=== PATIENT | male | born 1955 ===

== ENCOUNTER 2017-12-05 13:27 | Inpatient (IN) | payer OTHER ==
[~2017-12-05] VITALS: Ht 177.8 cm; Wt 69.8 kg
[2017-12-05] MEDS ORDERED: SODIUM CHLORIDE 0.9% 1,000ML IVBOLUS ONE ×2 (14:00→15:30)
[2017-12-05] MEDS ORDERED: PLEASE ENTER ALLERGIES MC SCH (14:00)
[2017-12-05] MEDS ORDERED: PLEASE ENTER HEIGHT AND WEIGHT MC SCH (14:00)
[2017-12-05] MEDS ORDERED: DEXTROSE 50%, 50ML VIAL IVPush ONE ×2 (14:00→16:00)
[2017-12-05] MEDS ORDERED: ONDANSETRON 2MG/ML, 2ML IVPush ONE (14:00)
[2017-12-05] MEDS ORDERED: CEFTRIAXONE 1,000 MG in SODIUM CHLORIDE 0.9% 50 ML IVPB ONE (14:00)
[2017-12-05] MEDS ORDERED: ONDANSETRON 2MG/ML, 2ML ONE (14:03)
[2017-12-05] MEDS ORDERED: DEXTROSE 50%, 50ML SYRINGE ONE ×3 (14:03→17:19)
[2017-12-05 14:26] LABS: ALANINE AMINOTRANSFERASE 41 U/L (12-78); ALBUMIN 3.5 g/dL (3.4-5.0); ANION GAP 12 mmol/L (5-15); CALCIUM 8.5 mg/dL (8.5-10.1); CHLORIDE 110 mmol/L (98-107); SALICYLATE LEVEL 1.9 mg/dL (2.8-20.0)
[2017-12-05] MEDS ORDERED: THIAMINE 100 MG in DEXTROSE 5% 50 ML IVPB ONE (14:30)
[2017-12-05 14:31] LABS: ALKALINE PHOSPHATASE 165 U/L (45-117); BILIRUBIN,TOTAL 0.3 mg/dL (0.2-1.0); CREATININE 1.01 mg/dL (0.7-1.3); TOTAL PROTEIN 7.4 g/dL (6.4-8.2); TROPONIN I < 0.015 ng/mL (0.000-0.045)
[2017-12-05] MEDS ORDERED: CEFTRIAXONE PMX 1GM/50ML 50 ML ONE (14:31)
[2017-12-05 14:32] LABS: ACETAMINOPHEN < 2 mcg/mL (10-30)
[2017-12-05 14:37] LABS: MD YES; MEAN CORPUSCULAR HEMOGLOBIN 25.9 pg (27.5-34.5); MEAN CORPUSCULAR HGB CONC 31.3 g/dL (33.2-36.2); MEAN CORPUSCULAR VOLUME 82.7 fL (81-97); MEAN PLATELET VOLUME 7.4 fL (7.4-10.4); PLATELET COUNT 434 x10^3/uL (130-400); RED BLOOD COUNT 4.43 x10^6/uL (4.38-5.82)
[2017-12-05 14:38] LABS: INTERNATIONAL NORMALIZED RATIO 0.95 (0.93-1.1); PROTHROMBIN TIME 9.9 Seconds (9.6-11.5)
[2017-12-05 14:50] LABS: BANDS%(MANUAL) 1 % (0-7); LYMPH#(MANUAL) 2.02 x10^3/uL (1-3.4); LYMPHS% (MANUAL) 10 % (22-44); MONOS#(MANUAL) 1.01 x10^3/uL (0.3-2.7); MONOS% (MANUAL) 5 % (2-9); SEG#(MANUAL) 16.97 x10^3/uL (1.8-6.8); SEGS% (MANUAL) 84 % (42-75)
[2017-12-05 14:52] LABS: ANISOCYTOSIS 2+; MICROCYTOSIS 1+; OVALOCYTES 1+; TOXIC GRAN 2+
[2017-12-05 14:53] LABS: <PLATELET ESTIMATE> INCREASED; <PLT MORPHOLOGY> NORMAL PLT MORPH
[2017-12-05] MEDS ORDERED: MIDAZOLAM 1 MG/ML, 2ML ONE ×2 (15:03→15:17)
[2017-12-05] MEDS ORDERED: VANCOMYCIN PMX 1GM/200ML 200 ML IVPB ONE (15:30)
[2017-12-05] MEDS ORDERED: MIDAZOLAM 1 MG/ML, 2ML IVPush ONE ×2 (15:30→16:00)
[2017-12-05] MEDS ORDERED: ACYCLOVIR 500 MG in SODIUM CHLORIDE 0.9% 100 ML IVPB ONE (15:30)
[2017-12-05] MEDS ORDERED: OMNIPAQUE 350 MG/ML, 100ML BOTTLE ONE (15:41)
[2017-12-05] MEDS ORDERED: DEXTROSE 10%, 1,000ML IV ONE (16:00)
[2017-12-05] MEDS ORDERED: LABETALOL 5MG/ML, 20ML IVPush PRN (16:30)
[2017-12-05] MEDS ORDERED: ACETAMINOPHEN 325 MG TABLET PO PRN (16:30)
[2017-12-05] MEDS ORDERED: POLYETHYLENE GLYCOL 17 GM PACKET PO PRN (16:30)
[2017-12-05] MEDS ORDERED: DEXTROSE 4 GM TAB.CHEW PO PRN (17:00)
[2017-12-05] MEDS ORDERED: GLUCAGON 1 MG IM PRN (17:00)
[2017-12-05] MEDS ORDERED: DEXTROSE 50%, 50ML SYRINGE IVPush PRN (17:00)
[2017-12-05] MEDS ORDERED: BUPR300T4 PO (17:45)
[2017-12-05] MEDS ORDERED: MEMA5TAB PO (17:45)
[2017-12-05] MEDS ORDERED: CHOL20002 PO (17:45)
[2017-12-05] MEDS ORDERED: INSU100I7 SQ-INSULIN (17:45)
[2017-12-05] MEDS ORDERED: ATOR10TA9 PO (17:45)
[2017-12-05] MEDS ORDERED: LISI-167 PO (17:45)
[2017-12-05] MEDS ORDERED: ASPI-496 PO (17:45)
[2017-12-05] MEDS ORDERED: D5%-0.9% NACL 1,000 ML IV SCH (18:30)
[2017-12-05] MEDS: ENOXAPARIN 40 MG/0.4 ML SQ SCH (18:37)
[2017-12-05] MEDS: AMPICILLIN/SULBACTAM 3 GM in SODIUM CHLORIDE 0.9% 100 ML IV SCH (18:38)
[2017-12-05] MEDS: SODIUM CHLORIDE FLUSH 10ML SYR IVF SCH (21:00)
[2017-12-06] MEDS: AMPICILLIN/SULBACTAM 3 GM in SODIUM CHLORIDE 0.9% 100 ML IV SCH ×4 (00:47→22:33)
[2017-12-06] MEDS ORDERED: DEXTROSE 10%, 1,000ML IV SCH (01:30)
[2017-12-06 04:38] LABS: MEAN CORPUSCULAR HEMOGLOBIN 25.3 pg (27.5-34.5); MEAN CORPUSCULAR HGB CONC 31.4 g/dL (33.2-36.2); MEAN CORPUSCULAR VOLUME 80.6 fL (81-97); MEAN PLATELET VOLUME 7.8 fL (7.4-10.4); PLATELET COUNT 395 x10^3/uL (130-400); RED BLOOD COUNT 3.98 x10^6/uL (4.38-5.82); RED CELL DISTRIBUTION WIDTH 20.8 % (9.4-14.8)
[2017-12-06 04:43] LABS: ALANINE AMINOTRANSFERASE 37 U/L (12-78); ALBUMIN 2.9 g/dL (3.4-5.0); ANION GAP 10 mmol/L (5-15); CALCIUM 8.2 mg/dL (8.5-10.1); CHLORIDE 112 mmol/L (98-107); CREATININE 0.77 mg/dL (0.7-1.3)
[2017-12-06 04:46] LABS: ALKALINE PHOSPHATASE 143 U/L (45-117); BILIRUBIN,TOTAL 0.4 mg/dL (0.2-1.0); CHOL/HDL RATIO 1.6; CHOLESTEROL, TOTAL 107 mg/dL (140-239); HDL CHOL % 61 % (26-37); HDL CHOLESTEROL (DIRECT) 65 mg/dL (40-60); LDL CHOLESTEROL,CALCULATED 27 mg/dL (54-169); LDL/HDL RATIO 0.4 (0.5-3.0); TOTAL PROTEIN 6.1 g/dL (6.4-8.2); TRIGLYCERIDES 76 mg/dL (50-200); VLDL CHOLESTEROL 15 mg/dL (0-25)
[2017-12-06 05:03] LABS: MD YES
[2017-12-06 05:05] LABS: BASOS#(MANUAL) 0.19 x10^3/uL (0-0.1); BASOS% (MANUAL) 1 % (0-1); LYMPH#(MANUAL) 4.86 x10^3/uL (1-3.4); LYMPHS% (MANUAL) 26 % (22-44); MONOS#(MANUAL) 1.87 x10^3/uL (0.3-2.7); MONOS% (MANUAL) 10 % (2-9); SEG#(MANUAL) 11.78 x10^3/uL (1.8-6.8); SEGS% (MANUAL) 63 % (42-75)
[2017-12-06 05:06] LABS: ANISOCYTOSIS 2+; MICROCYTOSIS 1+; OVALOCYTES 1+
[2017-12-06 05:07] LABS: SCHISTOCYTES 1+
[2017-12-06 05:08] LABS: <PLATELET ESTIMATE> ADEQUATE; <PLT MORPHOLOGY> NORMAL PLT MORPH; TOXIC GRAN 1+
[2017-12-06 06:37] LABS: AMPHETAMINE SCREEN, URINE Negative (Negative); BARBITURATE SCREEN, URINE Negative (Negative); BENZODIAZEPINE SCREEN, URINE Positive (Negative); CANNABINOID SCREEN, URINE Negative (Negative); COCAINE SCREEN, URINE Negative (Negative); METHADONE SCREEN, URINE Negative (Negative); OPIATE SCREEN, URINE Negative (Negative)
[2017-12-06 06:45] LABS: MICROSCOPIC INDICATED
[2017-12-06 06:55] LABS: CULTURE INDICATED? NO
[2017-12-06] MEDS ORDERED: MAGNESIUM SULFATE PMX 2GM/50ML 50 ML IV ONE (07:30)
[2017-12-06] MEDS ORDERED: SODIUM PHOSPHATE 20 MMOL in SODIUM CHLORIDE 0.9% 500 ML IV ONE (07:30)
[2017-12-06] MEDS: SENNA/DOCUSATE TABLET PO SCH (07:30)
[2017-12-06] MEDS ORDERED: PANTOPRAZOLE 40 MG IV IVPush SCH (07:30)
[2017-12-06] MEDS: SODIUM CHLORIDE FLUSH 10ML SYR IVF SCH ×2 (07:31→22:33)
[2017-12-06] MEDS: TEMPLATE NON-FORMULARY MED. (Bupropion Hcl** (Bupropion Xl**) 300 MG) HOMEMEDPO SCH (09:00)
[2017-12-06] MEDS: CHOLECALCIFEROL 1,000 UNIT TABLET PO SCH (09:24)
[2017-12-06] MEDS: ASPIRIN 81 MG TABLET EC PO SCH (09:24)
[2017-12-06] MEDS: LISINOPRIL 10 MG TABLET PO SCH (09:24)
[2017-12-06] MEDS: MEMANTINE 5MG TABLET PO SCH (09:25)
[2017-12-06] MEDS ORDERED: D5%-0.9% NACL 1,000 ML IV SCH (13:00)
[2017-12-06 13:22] VITALS: BP 132/67
[2017-12-06] MEDS: ENOXAPARIN 40 MG/0.4 ML SQ SCH (15:58)
[2017-12-06 18:36] VITALS: BP 111/53
[2017-12-06] MEDS: ATORVASTATIN 10 MG TABLET PO SCH (22:33)
[2017-12-07 00:32] VITALS: BP 117/61
[2017-12-07] MEDS: AMPICILLIN/SULBACTAM 3 GM in SODIUM CHLORIDE 0.9% 100 ML IV SCH ×4 (04:42→22:04)
[2017-12-07 06:44] VITALS: BP 131/66
[2017-12-07 08:03] LABS: ALBUMIN 2.6 g/dL (3.4-5.0); CALCIUM 8.2 mg/dL (8.5-10.1)
[2017-12-07 08:07] LABS: ALANINE AMINOTRANSFERASE 35 U/L (12-78); ALKALINE PHOSPHATASE 127 U/L (45-117); BILIRUBIN,TOTAL 0.5 mg/dL (0.2-1.0); TOTAL PROTEIN 5.7 g/dL (6.4-8.2)
[2017-12-07 08:12] LABS: ANION GAP 10 mmol/L (5-15); CHLORIDE 113 mmol/L (98-107)
[2017-12-07] MEDS ORDERED: POTASSIUM CHLORIDE 20 MEQ TAB.ER.PRT PO ONE (08:30)
[2017-12-07] MEDS ORDERED: MAGNESIUM SULFATE 4 GM in SODIUM CHLORIDE 0.9% 100 ML IV ONE (08:30)
[2017-12-07] MEDS ORDERED: MAGNESIUM SULFATE IN WATER 50 ML IV ONE (08:36)
[2017-12-07 08:42] LABS: MEAN CORPUSCULAR HEMOGLOBIN 26.3 pg (27.5-34.5); MEAN CORPUSCULAR HGB CONC 32.1 g/dL (33.2-36.2); MEAN PLATELET VOLUME 8.4 fL (7.4-10.4); PLATELET COUNT 343 x10^3/uL (130-400); RED BLOOD COUNT 3.73 x10^6/uL (4.38-5.82); RED CELL DISTRIBUTION WIDTH 20.7 % (9.4-14.8)
[2017-12-07] MEDS: SODIUM CHLORIDE FLUSH 10ML SYR IVF SCH ×2 (09:00→21:37)
[2017-12-07] MEDS: TEMPLATE NON-FORMULARY MED. (Bupropion Hcl** (Bupropion Xl**) 300 MG) HOMEMEDPO SCH (09:00)
[2017-12-07] MEDS: SENNA/DOCUSATE TABLET PO SCH (09:00)
[2017-12-07 09:08] LABS: MD YES
[2017-12-07 09:11] LABS: BASOS#(MANUAL) 0.15 x10^3/uL (0-0.1); BASOS% (MANUAL) 1 % (0-1); EOS#(MANUAL) 0.15 x10^3/uL (0.0-0.4); EOS% (MANUAL) 1 % (1-7); LYMPH#(MANUAL) 4.23 x10^3/uL (1-3.4); LYMPHS% (MANUAL) 28 % (22-44); MICROCYTOSIS 1+; MONOS#(MANUAL) 2.11 x10^3/uL (0.3-2.7); MONOS% (MANUAL) 14 % (2-9); SEG#(MANUAL) 8.46 x10^3/uL (1.8-6.8); SEGS% (MANUAL) 56 % (42-75)
[2017-12-07 09:12] LABS: <PLATELET ESTIMATE> ADEQUATE; <PLT MORPHOLOGY> NORMAL PLT MORPH; ANISOCYTOSIS 2+; OVALOCYTES 1+; TARGET CELLS 1+
[2017-12-07] MEDS: MEMANTINE 5MG TABLET PO SCH (09:22)
[2017-12-07] MEDS: ASPIRIN 81 MG TABLET EC PO SCH (09:22)
[2017-12-07] MEDS: CHOLECALCIFEROL 1,000 UNIT TABLET PO SCH (09:22)
[2017-12-07] MEDS: LISINOPRIL 10 MG TABLET PO SCH (09:22)
[2017-12-07 12:32] VITALS: BP 129/68
[2017-12-07] MEDS ORDERED: TAMSULOSIN 0.4 MG CAP.ER.24H PO ONE (14:00)
[2017-12-07] MEDS ORDERED: D5%-0.9% NACL 1,000 ML IV SCH (14:00)
[2017-12-07] MEDS: INSULIN LISPRO 100 UNITS/ML, PEN SQ-INSULIN SCH ×3 (14:19→21:36)
[2017-12-07] MEDS: ENOXAPARIN 40 MG/0.4 ML SQ SCH (16:56)
[2017-12-07 20:10] VITALS: BP 112/57
[2017-12-07] MEDS: ATORVASTATIN 10 MG TABLET PO SCH (21:35)
[2017-12-08] MEDS: AMPICILLIN/SULBACTAM 3 GM in SODIUM CHLORIDE 0.9% 100 ML IV SCH ×4 (04:56→16:45)
[2017-12-08 05:36] LABS: ANION GAP 8 mmol/L (5-15); CHLORIDE 113 mmol/L (98-107); CREATININE 0.68 mg/dL (0.7-1.3)
[2017-12-08 05:41] LABS: MEAN CORPUSCULAR HEMOGLOBIN 26.2 pg (27.5-34.5); MEAN CORPUSCULAR HGB CONC 31.9 g/dL (33.2-36.2); MEAN CORPUSCULAR VOLUME 82.3 fL (81-97); MEAN PLATELET VOLUME 8.2 fL (7.4-10.4); PLATELET COUNT 343 x10^3/uL (130-400); RED CELL DISTRIBUTION WIDTH 20.8 % (9.4-14.8)
[2017-12-08 06:01] LABS: MD YES
[2017-12-08 06:04] LABS: LYMPH#(MANUAL) 5.22 x10^3/uL (1-3.4); LYMPHS% (MANUAL) 35 % (22-44); MONOS#(MANUAL) 0.75 x10^3/uL (0.3-2.7); MONOS% (MANUAL) 5 % (2-9); SEG#(MANUAL) 8.94 x10^3/uL (1.8-6.8); SEGS% (MANUAL) 60 % (42-75)
[2017-12-08 06:05] LABS: <PLATELET ESTIMATE> ADEQUATE; <PLT MORPHOLOGY> NORMAL PLT MORPH; ANISOCYTOSIS 2+; ECHINOCYTES 1+; MICROCYTOSIS 1+; OVALOCYTES 1+; TARGET CELLS 1+
[2017-12-08 06:07] LABS: TOXIC GRAN 1+
[2017-12-08 06:26] VITALS: BP 119/53
[2017-12-08] MEDS: TEMPLATE NON-FORMULARY MED. (Bupropion Hcl** (Bupropion Xl**) 300 MG) HOMEMEDPO SCH (08:10)
[2017-12-08] MEDS: CHOLECALCIFEROL 1,000 UNIT TABLET PO SCH (08:11)
[2017-12-08] MEDS: MEMANTINE 5MG TABLET PO SCH (08:11)
[2017-12-08] MEDS: SODIUM CHLORIDE FLUSH 10ML SYR IVF SCH (08:11)
[2017-12-08] MEDS: ASPIRIN 81 MG TABLET EC PO SCH (08:11)
[2017-12-08] MEDS: SENNA/DOCUSATE TABLET PO SCH (08:12)
[2017-12-08] MEDS: LISINOPRIL 10 MG TABLET PO SCH (08:12)
[2017-12-08] MEDS: INSULIN LISPRO 100 UNITS/ML, PEN SQ-INSULIN SCH ×3 (08:13→17:06)
[2017-12-08] MEDS ORDERED: TAMSULOSIN 0.4 MG CAP.ER.24H PO SCH (09:00)
[2017-12-08 12:10] VITALS: BP 127/61
[2017-12-08] MEDS ORDERED: TAMS-11 PO (12:32)
[2017-12-08] MEDS ORDERED: AMOX1TAB64 PO (12:34)
[2017-12-08] MEDS: ENOXAPARIN 40 MG/0.4 ML SQ SCH (16:42)
== END 2017-12-08 18:23 | DRG 637 ==
LOC: ED 16:27 → EDIP 16:28 → ED 17:36 → CCU 18:04 → 4EST 12-06 12:05
PROVIDERS: ADMIT Internal Medicine; ATTEND Family Medicine
PROC: 0T9B80Z Drainage of Bladder with Drainage Device, Via Natural or Artificial Opening Endoscopic (ICD-10-PCS; principal; 2017-12-07)
DX: E10.641 Type 1 diabetes mellitus with hypoglycemia with coma (principal); G93.41 Metabolic encephalopathy; J69.0 Pneumonitis due to inhalation of food and vomit; J98.11 Atelectasis; K86.1 Other chronic pancreatitis; E10.51 Type 1 diabetes mellitus with diabetic peripheral angiopathy without gangrene; E55.9 Vitamin D deficiency, unspecified; E78.00 Pure hypercholesterolemia, unspecified; E78.5 Hyperlipidemia, unspecified; F03.90 Unspecified dementia, unspecified severity, without behavioral disturbance, psychotic disturbance, mood disturbance, and anxiety; R33.9 Retention of urine, unspecified; F10.21 Alcohol dependence, in remission; F32.9 Major depressive disorder, single episode, unspecified; I10 Essential (primary) hypertension; F41.9 Anxiety disorder, unspecified; K59.00 Constipation, unspecified; R32 Unspecified urinary incontinence; Z79.4 Long term (current) use of insulin; Z87.820 Personal history of traumatic brain injury; Z90.81 Acquired absence of spleen; Z79.899 Other long term (current) drug therapy; Z79.82 Long term (current) use of aspirin; Z79.84 Long term (current) use of oral hypoglycemic drugs; T38.3X5A Adverse effect of insulin and oral hypoglycemic [antidiabetic] drugs, initial encounter; Y92.89 Other specified places as the place of occurrence of the external cause
CPT/HCPCS: 36415; 51702; 99285; J7042; 70450; 71045; 71275; 74175; 80048; 80053; 80061; 80307; 80329; 81001; 82140; 82947; 82962; 83605; 83735; 84100; 84443; 84484; 85025; 85610; 86850; 86900; 87040; 87081; 93005; 96361; 96365; 96367; 96375; J0133; J0295; J0696; J1650; J2250; J2405; J3370; J3411; Q9967; C9113; G0480; J1815; J3475; J7030; J7040